=== PATIENT | male | born 1990 | race Caucasian/White ===

== ENCOUNTER 2019-11-02 12:58 | Emergency (ER) | payer BC ==
[2019-11-02] MEDS ORDERED: ONDANSETRON HCL IV 4 MG/2 ML VIAL IV ONE (13:27)
[2019-11-02] MEDS ORDERED: 0.9 % SODIUM CHLORIDE 1,000 ML BAG IV ONE ×2 (13:27→14:04)
--- NOTE | 2019-11-02 13:30 | Emergency Department Record ---
History of Present Illness - General Chief complaint: Dehydration Stated complaint: DEHYDRATED,ALCOHOL POISONING Time Seen by Provider: 11/02/19 13:05 Source: Patient Mode of Arrival: Ambulatory Limitations: No limitations - History of Present Illness Initial comments: The patient is here due to drinking to much alcohol last evening and since has had persistent vomiting. He did have some SOB earlier but feels that is due to anxiety. He denies any AP, CP, or fevers and is more relaxed now. MD Complaint: Generalized weakness Onset/Timin -: Days(s) Location: Generalized - [place] Coma Scale Eye Response: (4) Open spontaneously Motor Response: (6) Obeys commands Verbal Response: (5) Oriented [place] Total: 15 - Related Data Home Medications Medication Instructions Recorded Confirmed Last Taken Albuterol Sulfate [Proventil Hfa] 6.7 gm IH ASDIR 11/02/19 11/02/19 Unknown Cetirizine HCl [Zyrtec] 10 mg PO DAILY 11/02/19 11/02/19 Unknown Previous Rx's Medication Instructions Recorded Ondansetron [Zofran Odt] 4 mg SL .Q4-6H PRN #12 tab.rapdis 11/02/19 Allergies Allergy/AdvReac Type Severity Reaction Status Date / Time No Known Drug Allergies Allergy Verified 11/02/19 13:08 Travel Screening - Travel/Exposure Within Last 30 Days Have you traveled within the last 30 days?: No Review of Systems Constitutional: Denies: Chills, Fever Eyes: Denies: Eye discharge ENT: Denies: Congestion Respiratory: Denies: Cough, Dyspnea Past Medical History - SOCIAL HISTORY Smoking Status: Never smoker Alcohol Use: Heavy Drug Use: None - RESPIRATORY Hx Respiratory Disorders: Yes Hx Asthma: Yes Comment:: seasonal allergies - CARDIOVASCULAR Hx Cardio Disorders: No - NEURO Hx Neuro Disorders: No - GI Hx GI Disorders: No - Hx Genitourinary Disorders: No - ENDOCRINE Hx Endocrine Disorders: No - MUSCULOSKELETAL Hx Musculoskeletal Disorders: No - PSYCH Hx Psych Problems: No - HEMATOLOGY/ONCOLOGY Hx Hematology/Oncology Disorders: No Family Medical History Any Significant Family History?: No Physical Exam - General General Appearance: Alert, Oriented x3, Cooperative, No acute distress - Head Head exam: Atraumatic, Normocephalic, Normal inspection - Eye Eye exam: Normal appearance, PERRL, EOMI - ENT Throat exam: Normal inspection. negative: Tonsillar erythema, Tonsillar exudate - Neck Neck exam: Normal inspection, Full ROM. negative: Tenderness - Respiratory Respiratory exam: Normal lung sounds bilaterally. negative: Respiratory distress - Cardiovascular Cardiovascular Exam: Regular rate, Normal rhythm, Normal heart sounds - GI/Abdominal GI/Abdominal exam: Soft, Normal bowel sounds. negative: Rebound, Rigid, Tenderness - Extremities Extremities exam: Normal inspection, Full ROM, Normal capillary refill. negative: Tenderness - Back Back exam: Denies: Vertebral tenderness - Neurological Neurological exam: Alert, Normal gait. negative: Abnormal gait, Motor sensory deficit - Psychiatric Psychiatric exam: negative: Anxious Course Vital Signs 11/02/19 13:04 Temperature 97.5 F L Pulse Rate 116 H Respiratory 18 Rate Blood Pressure 156/104 Pulse Ox 98 - Reevaluation(s) Reevaluation #1: The patient is doing a LOT better at this time and denies any pain, anxiety or nausea. I did discuss the need to cut back on his alcohol intake and he does agree with that plan. 11/02/19 14:50 Medical Decision Making - Data Complexity MDM Data: Labs Ordered and/or Reviewed - Lab Data Result diagrams: 11/02/19 13:10 11/02/19 13:10 Disposition Disposition: Discharge Clinical Impression: Alcohol abuse Disposition: Home, Self-Care Condition: (2) Stable Instructions: Abuse of Alcohol (ED) Additional Instructions: Please cut back your drinking of alcohol and use the Zofran for nausea. Please see your family doctor for recheck later this week and also to have your blood pressure evaluated further. Return to the ER for any worsening symptoms. Prescriptions: Ondansetron [Zofran Odt] 4 mg SL .Q4-6H PRN #12 tab.rapdis PRN Reason: Nausea Forms: Patient Portal Access Time of Disposition: 14:52 Quality - Quality Measures Quality Measures: N/A - Blood Pressure Screening View Details: Yes Does Patient Have Any of the Following: No Blood Pressure Classification: Hypertensive Reading Systolic Measurement: 156 Diastolic Measurement: 104 Screening for High Blood Pressure: < First Hypertensive BP, F/U Documented > [[id number]] First Hypertensive Follow-up Interventions: Referral to alternative/primary care provider.
[2019-11-02 13:38] LABS: ABSOLUTE NEUTROPHIL COUNT 5.23; BASO % 0.3 % (0-6); EOS % 0.1 % (0-6); GRAN % 66.3 % (47-80); HEMATOCRIT 46.9 % (42.0-52.0); HEMOGLOBIN 16.1 gm/dl (14.0-18.0); LYMPH % 25.7 % (16-45); MEAN CELL VOLUME 89.2 fl (81-97); MEAN CORPUSCULAR HEMOGLOBIN 30.6 pg (27-33); MEAN CORPUSCULAR HGB CONC 34.3 g/dl (32-36); MONO % 7.6 % (0-9); PLATELET COUNT 253 K/uL (130-400); RED BLOOD COUNT 5.26 M/uL (4.40-5.70); RED CELL DISTRIBUTION WIDTH 12.2 % (11.5-14.5); WHITE BLOOD COUNT W/O DIFF 7.9 K/uL (4.2-12.2)
[2019-11-02 13:48] LABS: BLOOD UREA NITROGEN 12 mg/dL (6-20); CREATININE 0.8 mg/dL (0.7-1.2); EST GLOMERULAR FILTRATION RATE > 60 mL/min; TOTAL PROTEIN 8.1 g/dL (6.6-8.7)
[2019-11-02 13:50] LABS: GLUCOSE,RANDOM 113 mg/dL (74-109)
[2019-11-02 13:53] LABS: ALBUMIN 5.1 g/dL (4.0-5.0); ALKALINE PHOSPHATASE 89 U/L (40-129); ALT/SGPT 45 U/L (<41); AST/SGOT 36 U/L (10.0-50.0)
[2019-11-02 13:54] LABS: ALCOHOL 0.072 g/dL (0-0.010); BILIRUBIN,DIRECT < 0.2 mg/dL (0-0.3)
== END 2019-11-02 15:21 | disposition home or self-care (01) ==
LOC: ER 12:58
DX: F10.129 Alcohol abuse with intoxication, unspecified (principal); E86.0 Dehydration; R11.2 Nausea with vomiting, unspecified; R53.1 Weakness; R06.02 Shortness of breath; Y90.3 Blood alcohol level of 60-79 mg/100 ml
CPT/HCPCS: 80048; 80076; 80320; 85025; 96361; 96374; 99284; J2405; J7030